=== PATIENT | male | born 2005 | race Two or more races ===

== ENCOUNTER 2025-02-21 16:27 | Emergency (ER) | payer BC ==
[~2025-02-21] VITALS: Ht 177.8 cm; Wt 81.6 kg
[2025-02-21 16:48] VITALS: RESP 18; O2SAT 98
--- NOTE | 2025-02-21 17:13 | ED.PDOC ---
HPI Comments 19 y/o M, presents to the ED for CC of s/p dog bite. Patient states, he was his dog during a dog fight when he was accidently bit on his left hand. Following trauma has a notable, 3cm laceration to his 3rd left digit and a deep puncture wound to his left 2nd digit. At this time bleeding is controlled and patient has good flexion and extension of the left hand. No other symptoms or modifying factors are present at this time. Chief Complaint: Wound Check Time Seen by MD: 17:00 Reviewed Notes: Nurses Notes, Medications, Allergies Allergies: Coded Allergies: NO KNOWN ALLERGIES (Unverified , 02/21/25) Information Source: Patient Mode of Arrival: Ambulatory Severity: Moderate Severity of Laceration: Controlled Bleeding Complexity: Intermediate Timing: Minutes Prehospital treatment: None Laceration Location: Digit #2 (left hand), Digit #3 (left hand) Mechanism: Dog Last Tetanus: Unknown Laceration Length (cm): 3 Depth of Injury: Tendon Tender: Moderate Discharge: Bloody Erythema: Localized to Wound Edges Past Medical History PAST MEDICAL HISTORY: Denies Surgical History: Denies all surgeries Family History Family History: Unknown Social History Smoker: Non-Smoker Alcohol: Denies ETOH Use Drugs: Denies Drug Use Lives In: Home Constitutional: denies: chills, diaphoresis, fatigue, fever, malaise, sweats, weakness, others EENTM: denies: blurred vision, double vision, ear bleeding, ear discharge, ear drainage, ear pain, ear ringing, eye pain, eye redness, hearing loss, mouth pain, mouth swelling, nasal discharge, nose bleeding, nose congestion, nose pain, photophobia, tearing, throat pain, throat swelling, voice changes, others Respiratory: denies: cough, hemoptysis, orthopnea, SOB at rest, shortness of breath, SOB with excertion, stridor, wheezing, others Cardiovascular: denies: chest pain, dizzy spells, diaphoresis, Dyspnea on exertion, edema, irregular heart beat, left arm pain, lightheadedness, palpitations, PND, syncope, others Gastrointestinal: denies: abdomen distended, abdominal pain, blood streaked bowels, constipated, diarrhea, dysphagia, difficulty swallowing, hematemesis, melena, nausea, poor appetite, poor fluid intake, rectal bleeding, rectal pain, vomiting, others Genitourinary: denies: burning, dysuria, flank pain, frequency, hematuria, incontinence, penile discharge, penile sore, pain, testicle pain, testicle swelling, urgency, others Neurological: denies: dizziness, fainting, headache, left sided numbness, left sided weakness, numbness, paresthesia, pre-existing deficit, right sided numbness, right sided weakness, seizure, speech problems, tingling, tremors, weakness, others Musculoskeletal: denies: back pain, gout, joint pain, joint swelling, muscle pain, muscle stiffness, neck pain, others Integumetry: reports: laceration; denies: bruises, change in color, change in hair/nails, dryness, lesions, lumps, rash, wounds, others Allergic/Immunocompromised: denies: Difficulty Healing, Frequent Infections, Hives, Itching, others Hematologic/Lymphatic: denies: anemia, blood clots, easy bleeding, easy bruising, swollen glands, others Endocrine: denies: excessive hunger, excessive sweating, excessive thirst, excessive urination, flushing, intolerance to cold, intolerance to heat, unexplained weight gain, unexplained weight loss, others Psychiatric: denies: anxiety, bipolar disorder, depression, hopeless, panic disorder, schizophrenia, sleepless, suicidal, others All Other Systems: Reviewed and Negative Physical Exam General Appearance: No Apparent Distress, Normal HEENT: Normal ENT Inspection, Pharynx Normal Neck: Full Range of Motion, Non-Tender, Normal, Normal Inspection Respiratory: Chest Non-Tender, Lungs Clear, No Accessory Muscle Use, No Respiratory Distress, Normal Breath Sounds Cardiovascular: No Edema, No Murmur, No Gallop, Normal Peripheral Pulses, Regular Rate/Rhythm Breast Exam: Deferred Gastrointestinal: No Organomegaly, Non Tender, No Pulsatile Mass, Normal Bowel Sounds, Soft Genitalia: Deferred Pelvic: Deferred Rectal: Deferred Extremities: No calf tenderness, Normal capillary refill, Normal inspection, Normal range of motion, Non-tender, No pedal edema Musculoskeletal : Apperance: Normal Neurologic: Alert, 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 Was a procedure done?: No Differential diagnosis Generic Laceration: Tendon Injury, Laceration X-Ray, Labs, Meds, VS Vital Signs Date Time Temp Pulse Resp B/P (MAP) Pulse Ox O2 Delivery O2 Flow Rate FiO2 02/21/25 17:21 98.3 58 16 117/75 (89) 100 98.3 02/21/25 16:48 18 98 Room Air* 0 21 02/21/25 16:32 97.7 60 17 98/39 98 97.7 Current Medications Medications (Trade) Dose Ordered Sig/Osiris Route Start Time Stop Time Status Last Admin Cefazolin Sodium 50 ml @ 100 mls/hr ONCE ONCE IV 02/21/25 17:00 02/21/25 17:29 DC 02/21/25 17:28 [place] [id number] Ph: [phone] DIAGNOSTIC IMAGING Diagnostic Imaging Report : [id number] Signed PATIENT: WAN WHITEHEAD ACCT: [id number] UNIT: [id number] : 2005 LOC: ER ROOM / BED: / AGE / SEX: 19 / M ADM STATUS: REG ER SERVICE 50 ORDERING PHYSICIAN: VENKAT WEBBER PROCEDURE(s): LHAN - L HAND 3V XRAY REASON: dog bite ORDER NUMBER(s): [id number], ACCESSION NUMBER(s): [id number] CLINICAL INDICATION: dog bite TECHNIQUE: 3 radiographic views of the left hand were obtained. Comparison: None FINDINGS/IMPRESSION: Bony structures are normal alignment. There are no radiopaque foreign bodies. There are no acute fractures or dislocations. ATED BY: MANAS PAULSON Jr., DO DICTATED DATE/TIME: 02/21/251730 SIGNED BY: MANAS PAULSON Jr., DO SIGNED DATE/TIME: 02/21/251730 CC: X-Ray, Labs, Meds, VS Comment Spoke with Dr. Quinn, at [facility], hand specialist. He advised that patient can follow up outpatient at his clinic in the next 1-[address] patient on Augmentin and leave the wound open, non closure. Apply Xeroform dressing and bulky dressing. Patient be started on Ancef and be discharged home. Time of 1ST Reevaluation: 17:30 Reevaluation 1ST: Unchanged Patient Education/Counseling: Diagnosis, Treatment, Need For Follow Up (Patient advised to follow up in 24 hours for wound recheck. Clean dressing daily.) Family Education/Counseling: No Family Present Departure 1 Departure Time of Disposition: 18:17 Impression: Primary Impression: Hand laceration Qualified Codes: S61.412A - Laceration without foreign body of left hand, initial encounter Additional Impression: Dog bite Qualified Codes: W54.0XXA - Bitten by dog, initial encounter Disposition: HOME / SELF CARE / HOMELESS Condition: Stable e-Prescriptions Hydrocodone-Acetaminophen (Hydrocodone Bitartrate/AC 5-325 mg) 1 Tab Tab 1 TAB PO TID PRN, #20 TAB Prov: VENKAT WEBBER PLUG STITCHER 02/21/25 Amoxicillin & Pot Clavulanate (AUGMENTIN TABLET) 875 Mg Tb 875 MG PO BID for 10 Days, #20 TAB Prov: VENKAT WEBBER PLUG STITCHER 02/21/25 Discharged With: Self Critical Care Note Critical Care Time?: No Stability Stability form required: No Heart Score Heart Score: Heart Score Response (Comments) Value History N/A 0 EKG N/A 0 Age N/A 0 Risk Factors N/A 0 Troponin N/A 0 Total 0 I personally scribed for VENKAT WEBBER PLUG STITCHER ([email or web address]) on 02/21/25 at 17:13. Electronically submitted by Evelin Cano ([email or web address]). I personally scribed for VENKAT WEBBER PLUG STITCHER ([email or web address]) on 02/21/25 at 17:44. Electronically submitted by Evelin Cano ([email or web address]). VENKAT WEBBER PLUG STITCHER Feb 21, 2025 17:13
[2025-02-21] MEDS: ceFAZolin 1GM/50ML 50 ML IV ONE (17:28)
--- NOTE | 2025-02-21 17:33 | DVH ---
CLINICAL INDICATION: dog bite TECHNIQUE: 3 radiographic views of the left hand were obtained. Comparison: None FINDINGS/IMPRESSION: Bony structures are normal alignment. There are no radiopaque foreign bodies. There are no acute fractures or dislocations.
[2025-02-21] MEDS ORDERED: AUG875T PO (18:18)
[2025-02-21] MEDS ORDERED: HYDR-4902 PO (18:18)
[2025-02-21 18:24] VITALS: BP 115/58; PULSE 54; RESP 16; TEMP 98.2; O2SAT 100
== END 2025-02-21 18:58 | disposition home or self-care (01) ==
LOC: ER 16:27
DX: S61.213A Laceration without foreign body of left middle finger without damage to nail, initial encounter (principal); S61.231A Puncture wound without foreign body of left index finger without damage to nail, initial encounter; W54.0XXA Bitten by dog, initial encounter; Y93.89 Activity, other specified; Y92.89 Other specified places as the place of occurrence of the external cause; Y99.8 Other external cause status
CPT/HCPCS: 73130; 96365; 99284; J0690

== ENCOUNTER 2025-02-22 09:13 | Emergency (ER) | payer SELFPAY ==
[~2025-02-22] VITALS: Ht 177.8 cm; Wt 80.4 kg
[~2025-02-22 09:13] MED LIST: AUG875T PO; HYDR-4902 PO
[2025-02-22 09:15] VITALS: BP 140/91; PULSE 69; RESP 20; TEMP 97.1; O2SAT 100
--- NOTE | 2025-02-22 09:56 | ED.PDOC ---
History of Present Illness HPI Comments A 19 YEAR OLD MALE PRESENTS TO THE ED WITH COMPLAINT OF LEFT HAND LACERATION. PATIENT REPORTS THAT HE WAS HIS DOGS WHILE THEY WERE FIGHTING AND THE DOG BIT HIM ON HIS LEFT HAND LEAVING A 6CM LACERATION TO HIS LEFT DORSAL HAND. PATIENT NOTES HE WAS HERE IN THIS ED FOR THIS COMPLAINT YESTERDAY NIGHT WHERE THE PROVIDER DID NOT PLACE ANY SUTURES AND ONLY WRAPPED IT, BUT NOTES IT CONTINUED TO BLEED, PROMPTING HIM TO COME BACK TO THE ED TODAY FOR EVALUATION. PATIENT DENIES FEVER, CHILLS, SHORTNESS OF BREATH, CHEST PAIN, ABDOMINAL PAIN, NAUSEA, VOMITING, HEADACHE, OR OTHER COMPLAINTS. NO OTHER SYMPTOMS OR MODIFYING FACTORS AT THIS TIME. PATIENT IS ALERT, ORIENTED X 4, AND HAS STEADY GAIT. Chief Complaint: LACERATION OF LEFT HAND Time Seen by MD: 09:50 Reviewed Notes: Nurses Notes, Medications, Allergies Allergies: Coded Allergies: NO KNOWN ALLERGIES (Unverified , 02/21/25) Home Meds Active Scripts Hydrocodone-Acetaminophen (Hydrocodone Bitartrate/AC 5-325 mg) 1 Tab Tab, 1 TAB PO TID PRN, #20 TAB Prov:VENKAT WEBBER 02/21/25 Amoxicillin & Pot Clavulanate (AUGMENTIN TABLET) 875 Mg Tb, 875 MG PO BID for 10 Days, #20 TAB Prov:VENKAT WEBBER 02/21/25 Information Source: Patient Mode of Arrival: Ambulatory Severity: Moderate Timing: Hours Duration: Since onset, Days Prehospital treatment: None Medication Refill: For: Other (LEFT DORSAL HAND LACERATION ) Past Medical History PAST MEDICAL HISTORY: Denies Surgical History: Denies all surgeries Family History Family History: Reviewed,noncontributory to illness, Unknown Social History Smoker: Non-Smoker Alcohol: Denies ETOH Use Drugs: Denies Drug Use Lives In: Home Constitutional: reports: others (laceration of the hand); denies: chills, diaphoresis, fatigue, fever, malaise, sweats, weakness EENTM: denies: blurred vision, double vision, ear bleeding, ear discharge, ear drainage, ear pain, ear ringing, eye pain, eye redness, hearing loss, mouth pain, mouth swelling, nasal discharge, nose bleeding, nose congestion, nose pain, photophobia, tearing, throat pain, throat swelling, voice changes, others Respiratory: denies: cough, hemoptysis, orthopnea, SOB at rest, shortness of breath, SOB with excertion, stridor, wheezing, others Cardiovascular: denies: chest pain, dizzy spells, diaphoresis, Dyspnea on exertion, edema, irregular heart beat, left arm pain, lightheadedness, palpitations, PND, syncope, others Gastrointestinal: denies: abdomen distended, abdominal pain, blood streaked bowels, constipated, diarrhea, dysphagia, difficulty swallowing, hematemesis, melena, nausea, poor appetite, poor fluid intake, rectal bleeding, rectal pain, vomiting, others Genitourinary: denies: burning, dysuria, flank pain, frequency, hematuria, incontinence, penile discharge, penile sore, pain, testicle pain, testicle swelling, urgency, others Neurological: denies: dizziness, fainting, headache, left sided numbness, left sided weakness, numbness, paresthesia, pre-existing deficit, right sided numbness, right sided weakness, seizure, speech problems, tingling, tremors, weakness, others Musculoskeletal: denies: back pain, gout, joint pain, joint swelling, muscle pain, muscle stiffness, neck pain, others Integumetry: reports: laceration (LEFT DORSAL HAND ); denies: bruises, change in color, change in hair/nails, dryness, lesions, lumps, rash, wounds, others Allergic/Immunocompromised: denies: Difficulty Healing, Frequent Infections, Hives, Itching, others Hematologic/Lymphatic: denies: anemia, blood clots, easy bleeding, easy bruising, swollen glands, others Endocrine: denies: excessive hunger, excessive sweating, excessive thirst, excessive urination, flushing, intolerance to cold, intolerance to heat, unexplained weight gain, unexplained weight loss, others Psychiatric: denies: anxiety, bipolar disorder, depression, hopeless, panic disorder, schizophrenia, sleepless, suicidal, others All Other Systems: Reviewed and Negative Physical Exam General Appearance: No Apparent Distress, Normal HEENT: Normal ENT Inspection, PERRL/EOMI, Pharynx Normal, TMs Normal Neck: Full Range of Motion, Non-Tender, Normal, Normal Inspection Respiratory: Chest Non-Tender, Lungs Clear, No Accessory Muscle Use, No Respiratory Distress, Normal Breath Sounds Cardiovascular: No Edema, No JVD, No Murmur, No Gallop, Normal Peripheral Pulses, Regular Rate/Rhythm Breast Exam: Deferred Gastrointestinal: No Organomegaly, Non Tender, No Pulsatile Mass, Normal Bowel Sounds, Soft Genitalia: Deferred Pelvic: Deferred Rectal: Deferred Extremities: No calf tenderness, Normal capillary refill, Normal range of motion, No pedal edema, Tender (WITH LACERATION ON LEFT DORSAL HAND, NO BONY TENDERNESS AND SWELLING. 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 ), Normal Color, Warm Peripheral Pulses: 2+ carotid (R), 2+ carotid (L), 2+ Radial (R), 2+ Radial (L) Lymphatic: No Adenopathy Was a procedure done? Was a procedure done?: Yes Sedation Sedation?: No Laceration Repair : Location LEFT DORSAL HAND Length 6CM Anesthetic: Lidocaine Laceration Repair Prep: Saline, Betadine, by Irrigation Laceration Repair Wound Comple: epidermis/dermis repair Laceration Repair: Number of sutures (10), SQ, Size (4-0), Simple, Gauze Informed consent obtained: No Risks, benefits, and alternati: Yes Images 1 - Differential Dx Considerations may include: LACERATION OF LEFT DORSAL HAND POST DOG BITE X-Ray, Labs, Meds, VS Vital Signs Date Time Temp Pulse Resp B/P (MAP) Pulse Ox O2 Delivery O2 Flow Rate FiO2 02/22/25 09:15 97.1 69 20 140/91 100 97.1 X-Ray, Labs, Meds, VS Comment EXTERNAL MEDICAL RECORDS REVIEWED: [NONE] INDEPENDENT HISTORIANS: [NONE] SOCIAL DETERMINANTS OF HEALTH: [NONE] LABS ORDERED: NONE REVIEWED AND INTERPRETED RESULTS: NONE IMAGING ORDERED: NONE TREATMENTS ORDERED: LACERATION REPAIR OF LEFT HAND PROCEDURES PERFORMED: LACERATION REPAIR, SEE PROCEDURE SECTION. CRITICAL CARE TIME: NONE I HAVE CONSULTED DR. ROMAN REGARDING THIS PATIENT'S CASE AND LACERATION AND HE HAS AGREED THAT THE PATIENT NEEDS TO HAVE SUTURES PLACED TO CLOSE HIS LACERATION. DR. ROMAN HAS AGREED WITH THE PATIENT'S PLAN OF CARE. BASED ON HISTORY OF PRESENT ILLNESS, AND PHYSICAL EXAM, PATIENT WILL BE DISCHARGED HOME. SHARED DECISION MAKING: DISCUSSED WITH PATIENT THAT THEIR WORKUP WAS NORMAL. PATIENT INSTRUCTED TO FOLLOW UP WITH PRIMARY CARE PROVIDER IN 1-2 DAYS FOR RE- EVALUATION OF SYMPTOMS. PATIENT VERBALIZES UNDERSTANDING TO RETURN TO ED FOR NEW OR WORSENING SYMPTOMS OR IF FOLLOW UP WITH PCP CANNOT BE OBTAINED. PATIENT FEELS COMFORTABLE GOING HOME AT THIS TIME. ALL QUESTIONS ADDRESSED AT TIME OF DISCHARGE. Time of 1ST Reevaluation: 10:30 Reevaluation 1ST: Improved Patient Education/Counseling: Diagnosis, Treatment, Need For Follow Up Family Education/Counseling: Diagnosis, Treatment, Need For Follow Up Medical Screening: No EMC Exist At This Time SEPSIS Sepsis Screen Date sepsis recognized/suspect: Feb 22, 2025 Time Sepsis recognized/suspect: 915 Recent Procedure: No On Antibiotic Therapy: No Respiratory Rate >20: No Heart Rate >90: No Temp<36 C (96.8 F) or >38.3 C: No SBP <90 or MAP <65 mmHG: No New Acute Mental Status Change: No Is the patient on CPAP, BIPAP,: No Vital Signs Date Time Temp Pulse Resp B/P (MAP) Pulse Ox O2 Delivery O2 Flow Rate FiO2 02/22/25 09:15 97.1 69 20 140/91 100 97.1 Departure 1 Departure Time of Disposition: 10:40 Impression: Primary Impression: Laceration of left hand Qualified Codes: S61.412D - Laceration without foreign body of left hand, subsequent encounter Disposition: HOME / SELF CARE / HOMELESS Condition: Stable Additional Instructions: FOLLOW-UP WITH PCP IN 1 TO 2 DAYS. TAKE MEDICATIONS PRESCRIBED. RETURN TO ED FOR ANY NEW OR WORSENING SYMPTOMS. Discharged With: Self Critical Care Note Critical Care Time?: No Stability Stability form required: No I personally scribed for TERESA DA SILVA ([email or web address]) on 02/22/25 at 09:56. Electronically submitted by Malcolm Whitaker ([email or web address]). I personally scribed for TERESA DA SILVA ([email or web address]) on 02/22/25 at 10:19. Electronically submitted by Malcolm Whitaker ([email or web address]). TERESA DA SILVA Feb 22, 2025 09:56
== END 2025-02-22 10:21 | disposition home or self-care (01) ==
LOC: ER 09:19
DX: S61.412A Laceration without foreign body of left hand, initial encounter (principal); S61.452A Open bite of left hand, initial encounter; Z79.899 Other long term (current) drug therapy; W54.0XXA Bitten by dog, initial encounter; Y93.89 Activity, other specified; Y92.89 Other specified places as the place of occurrence of the external cause; Y99.8 Other external cause status
CPT/HCPCS: 12002

== ENCOUNTER 2025-02-27 12:33 | Emergency (ER) | payer BC, MEDICAID ==
[~2025-02-27] VITALS: Ht 177.8 cm; Wt 80.2 kg
[2025-02-27 12:36] VITALS: BP 126/70; PULSE 67; RESP 16; TEMP 98.2; O2SAT 99
--- NOTE | 2025-02-27 12:57 | ED.PDOC ---
History of Present Illness(SKN HPI Comments 19-year-old male who presents to the ED with chief complaint of wound check. The patient states that he was bit by Yoli last Thursday. Patient states he came to [facility] and told to see specialist. Patient was given referral to [facility] for hand specialists. Patient came back that night after [place] and had sutures applied and was told to come back one week later for further evaluation. Patient was given 10 day course antibiotics which he states he is still taking. Patient otherwise in the ED has a noted sutures on the left hand, with the area otherwise clean and no noted redness or swelling or exudate. Patient otherwise has stable vitals in the ED. Chief Complaint: Wound Check Time Seen by MD: 12:44 History of Present Illness: Nurses Notes, Medications, Allergies Allergies: Coded Allergies: NO KNOWN ALLERGIES (Unverified , 02/21/25) Home Meds Active Scripts Hydrocodone-Acetaminophen (Hydrocodone Bitartrate/AC 5-325 mg) 1 Tab Tab, 1 TAB PO TID PRN, #20 TAB Prov:VENKAT WEBBER 02/21/25 Amoxicillin & Pot Clavulanate (AUGMENTIN TABLET) 875 Mg Tb, 875 MG PO BID for 10 Days, #20 TAB Prov:VENKAT WEBBER 02/21/25 Information Source: Patient Mode of Arrival: Ambulatory Past Medical History PAST MEDICAL HISTORY: Denies Surgical History: Denies all surgeries Family History Family History: Reviewed,noncontributory to illness, Unknown Social History Smoker: Non-Smoker Alcohol: Denies ETOH Use Drugs: Denies Drug Use Lives In: Home Constitutional: denies: chills, diaphoresis, fatigue, fever, malaise, sweats, weakness, others EENTM: denies: blurred vision, double vision, ear bleeding, ear discharge, ear drainage, ear pain, ear ringing, eye pain, eye redness, hearing loss, mouth pain, mouth swelling, nasal discharge, nose bleeding, nose congestion, nose pain, photophobia, tearing, throat pain, throat swelling, voice changes, others Respiratory: denies: cough, hemoptysis, orthopnea, SOB at rest, shortness of breath, SOB with excertion, stridor, wheezing, others Cardiovascular: denies: chest pain, dizzy spells, diaphoresis, Dyspnea on exertion, edema, irregular heart beat, left arm pain, lightheadedness, palpitations, PND, syncope, others Gastrointestinal: denies: abdomen distended, abdominal pain, blood streaked bowels, constipated, diarrhea, dysphagia, difficulty swallowing, hematemesis, melena, nausea, poor appetite, poor fluid intake, rectal bleeding, rectal pain, vomiting, others Genitourinary: denies: burning, dysuria, flank pain, frequency, hematuria, incontinence, penile discharge, penile sore, pain, testicle pain, testicle swelling, urgency, others Neurological: denies: dizziness, fainting, headache, left sided numbness, left sided weakness, numbness, paresthesia, pre-existing deficit, right sided numbness, right sided weakness, seizure, speech problems, tingling, tremors, weakness, others Musculoskeletal: denies: back pain, gout, joint pain, joint swelling, muscle pain, muscle stiffness, neck pain, others Integumetry: reports: others (Sutures to the left hand noted); denies: bruises, change in color, change in hair/nails, dryness, laceration, lesions, lumps, rash, wounds Allergic/Immunocompromised: denies: Difficulty Healing, Frequent Infections, Hives, Itching, others Hematologic/Lymphatic: denies: anemia, blood clots, easy bleeding, easy bruising, swollen glands, others Endocrine: denies: excessive hunger, excessive sweating, excessive thirst, excessive urination, flushing, intolerance to cold, intolerance to heat, unexplained weight gain, unexplained weight loss, others Psychiatric: denies: anxiety, bipolar disorder, depression, hopeless, panic disorder, schizophrenia, sleepless, suicidal, others All Other Systems: Reviewed and Negative Physical Exam General Appearance: No Apparent Distress, Normal HEENT: Normal ENT Inspection, Pharynx Normal, TMs Normal Neck: Full Range of Motion, Non-Tender, Normal, Normal Inspection Respiratory: Chest Non-Tender, Lungs Clear, No Accessory Muscle Use, No Respiratory Distress, Normal Breath Sounds Cardiovascular: No Edema, No JVD, No Murmur, No Gallop, Normal Peripheral Pulses, Regular Rate/Rhythm Breast Exam: Deferred Gastrointestinal: No Organomegaly, Non Tender, No Pulsatile Mass, Normal Bowel Sounds, Soft Genitalia: Deferred Pelvic: Deferred Rectal: Deferred Extremities: No calf tenderness, Normal capillary refill, Normal inspection, Normal range of motion, Non-tender, No pedal edema Musculoskeletal : Apperance: Normal Neurologic: Alert, environmental monitoring technician II-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 Was a procedure done?: No Differential Diagnosis (INTG) Abscess: Abscess, Bacteremia, Cellulitis X-Ray, Labs, Meds, VS Vital Signs Date Time Temp Pulse Resp B/P (MAP) Pulse Ox O2 Delivery O2 Flow Rate FiO2 02/27/25 12:36 98.2 67 16 126/70 99 98.2 X-Ray, Labs, Meds, VS Comment Patient arrives alert and oriented, ABC's intact, afebrile, vital signs stable, saturating well in room air Stable for dc Additional MDM Review of External, Non-ED records: External records reviewed. Discussion with independent historian (EMS, family) history obtained from the patient/parents (if applicable) at bedside Chronic conditions affecting care: None Social determinants of health affecting care: None Consideration of admission (observation or admission): I considered escalation of care to admission for this patient, however given the reassuring workup, the patient is safe for outpatient management. Discussion with the Radiology: No Tests considered but not performed: Prescription medication considered but not given: Time of 1ST Reevaluation: 13:15 Reevaluation 1ST: Unchanged Patient Education/Counseling: Diagnosis, Treatment Family Education/Counseling: No Family Present SEPSIS Sepsis Screen Date sepsis recognized/suspect: Feb 27, 2025 Time Sepsis recognized/suspect: 1239 Recent Procedure: No On Antibiotic Therapy: No Respiratory Rate >20: No Heart Rate >90: No Temp<36 C (96.8 F) or >38.3 C: No SBP <90 or MAP <65 mmHG: No New Acute Mental Status Change: No Is the patient on CPAP, BIPAP,: No Vital Signs Date Time Temp Pulse Resp B/P (MAP) Pulse Ox O2 Delivery O2 Flow Rate FiO2 02/27/25 12:36 98.2 67 16 126/70 99 98.2 Departure 1 Departure Time of Disposition: 12:57 Impression: Primary Impression: Hand laceration Qualified Codes: S61.412S - Laceration without foreign body of left hand, sequela Disposition: HOME / SELF CARE / HOMELESS Condition: Stable Additional Instructions: Discharge Note: Drink plenty of fluids. Follow up with your primary Dr. If your condition becomes worse call and follow up with your primary DrAndrew for instructions or return to the ER if needed. Thank you for visiting [facility]. Discharged With: Self Critical Care Note Critical Care Time?: No Stability Stability form required: No Heart Score Heart Score: Heart Score Response (Comments) Value History N/A 0 EKG N/A 0 Age N/A 0 Risk Factors N/A 0 Troponin N/A 0 Total 0 I personally scribed for NAYELI ABBOTT NP ([email or web address]) on 02/27/25 at 13:36. Electronically submitted by Jose Pereyra ([email or web address]). NAYELI ABBOTT NP Feb 27, 2025 12:57
== END 2025-02-27 13:04 | disposition home or self-care (01) ==
LOC: ER 12:33
DX: S61.412A Laceration without foreign body of left hand, initial encounter (principal); Z79.899 Other long term (current) drug therapy; X58.XXXA Exposure to other specified factors, initial encounter; Y93.89 Activity, other specified; Y92.89 Other specified places as the place of occurrence of the external cause; Y99.8 Other external cause status

== ENCOUNTER 2025-03-02 11:09 | Inpatient (IN) | payer MEDICAID ==
[~2025-03-02] VITALS: Ht 177.8 cm; Wt 81.5 kg
--- NOTE | 2025-03-02 12:01 | ED.PDOC ---
GI ASSESSMENT HPI Comments A 19 YEAR OLD MALE PRESENTS TO THE ED WITH COMPLAINT OF LOWER ABDOMINAL PAIN WITH NAUSEA AND VOMITING. PATIENT STATES HE HAS BEEN EXPERIENCING LOWER ABDOMINAL PAIN WITH NAUSEA AND VOMITING THAT STARTED YESTERDAY NIGHT. PATIENT NOTES THAT HE WAS PRESCRIBED AUGMENTIN FOR A DOG BITE ON HIS LEFT HAND 5 DAYS AGO, BUT IS NOT SURE IF THIS IS WHAT IS CAUSING HIS SYMPTOMS. PATIENT DENIES DYSURIA, HEMATURIA, FLANK PAIN, FEVER, CHILLS, SHORTNESS OF BREATH, CHEST PAIN, HEADACHE, OR OTHER COMPLAINTS. NO OTHER SYMPTOMS OR MODIFYING FACTORS AT THIS TIME. PATIENT IS ALERT, ORIENTED X 4, AND HAS STEADY GAIT. Chief Complaint: Abdominal Pain Time Seen by MD: 11:28 Reviewed Notes: Nurses Notes, Medications, Allergies Allergies: Coded Allergies: NO KNOWN ALLERGIES (Unverified , 02/21/25) Home Meds Active Scripts Hydrocodone-Acetaminophen (Hydrocodone Bitartrate/AC 5-325 mg) 1 Tab Tab, 1 TAB PO TID PRN, #20 TAB Prov:VENKAT WEBBER 02/21/25 Amoxicillin & Pot Clavulanate (AUGMENTIN TABLET) 875 Mg Tb, 875 MG PO BID for 10 Days, #20 TAB Prov:VENKAT WEBBER 02/21/25 Information Source: Patient Mode of Arrival: Ambulatory Timing: Days Duration: Since onset, Days Prehospital treatment: None Quality: Aching, Cramping, Colicky Vomitus: Food Particles Stool: Normal Severity: Moderate Recent: None Recent Hx of: None Pain Location: RLQ, LLQ Modifying Factors: Nothing Associated sign and symptoms: Nausea, Vomiting, Abdominal Pain Past Medical History PAST MEDICAL HISTORY: Denies Surgical History: Denies all surgeries Family History Family History: Reviewed,noncontributory to illness Social History Smoker: Non-Smoker Alcohol: Denies ETOH Use Drugs: Denies Drug Use Lives In: Home Constitutional: denies: chills, diaphoresis, fatigue, fever, malaise, sweats, weakness, others EENTM: denies: blurred vision, double vision, ear bleeding, ear discharge, ear drainage, ear pain, ear ringing, eye pain, eye redness, hearing loss, mouth pain, mouth swelling, nasal discharge, nose bleeding, nose congestion, nose pain, photophobia, tearing, throat pain, throat swelling, voice changes, others Respiratory: denies: cough, hemoptysis, orthopnea, SOB at rest, shortness of breath, SOB with excertion, stridor, wheezing, others Cardiovascular: denies: chest pain, dizzy spells, diaphoresis, Dyspnea on exe rtion, edema, irregular heart beat, left arm pain, lightheadedness, palpitations, PND, syncope, others Gastrointestinal: reports: abdominal pain, nausea, vomiting; denies: abdomen distended, blood streaked bowels, constipated, diarrhea, dysphagia, difficulty swallowing, hematemesis, melena, poor appetite, poor fluid intake, rectal bleeding, rectal pain, others Genitourinary: denies: burning, dysuria, flank pain, frequency, hematuria, incontinence, penile discharge, penile sore, pain, testicle pain, testicle swelling, urgency, others Neurological: denies: dizziness, fainting, headache, left sided numbness, left sided weakness, numbness, paresthesia, pre-existing deficit, right sided numbness, right sided weakness, seizure, speech problems, tingling, tremors, weakness, others Musculoskeletal: denies: back pain, gout, joint pain, joint swelling, muscle pain, muscle stiffness, neck pain, others Integumetry: denies: bruises, change in color, change in hair/nails, dryness, laceration, lesions, lumps, rash, wounds, others Allergic/Immunocompromised: denies: Difficulty Healing, Frequent Infections, Hives, Itching, others Hematologic/Lymphatic: denies: anemia, blood clots, easy bleeding, easy bruising, swollen glands, others Endocrine: denies: excessive hunger, excessive sweating, excessive thirst, excessive urination, flushing, intolerance to cold, intolerance to heat, unexplained weight gain, unexplained weight loss, others Psychiatric: denies: anxiety, bipolar disorder, depression, hopeless, panic disorder, schizophrenia, sleepless, suicidal, others All Other Systems: Reviewed and Negative Physical Exam General Appearance: No Apparent Distress, Normal HEENT: Normal ENT Inspection, PERRL/EOMI, Pharynx Normal, TMs Normal Neck: Full Range of Motion, Non-Tender, Normal, Normal Inspection Respiratory: Chest Non-Tender, Lungs Clear, No Accessory Muscle Use, No Respiratory Distress, Normal Breath Sounds Cardiovascular: No Edema, No JVD, No Murmur, No Gallop, Normal Peripheral Pulses, Regular Rate/Rhythm Breast Exam: Deferred Gastrointestinal: LLQ, No Organomegaly, No Pulsatile Mass, Normal Bowel Sounds, RLQ, Soft, Tenderness (LOWER ABD WITH MILD GUARDING, NO REBOUND TENDERNESS. 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 Was a procedure done?: No GI differential Dx Differential Diagnosis: Appendicitis, Diverticular disease, Gastritis/PUD, Inflammatory BD, UTI, Dehydration, Food Poisoning, Viral, Kidney Stone X-Ray, Labs, Meds, VS Vital Signs Date Time Temp Pulse Resp B/P (MAP) Pulse Ox O2 Delivery O2 Flow Rate FiO2 03/02/25 11:11 98.3 75 16 112/76 98 98.3 Lab Test 03/02/25 13:17 Range/Units White Blood Count 22.7 H 4.4-10.8 10^3/uL Red Blood Count 5.21 4.5-5.90 10^6/uL Hemoglobin 15.7 13.5-17.5 g/dL Hematocrit 46.1 41.0-53.0 % Mean Corpuscular Volume 88.5 80.0-100.0 fL Mean Corpuscular Hemoglobin 30.1 28.0-32.0 pg Mean Corpuscular Hemoglobin Concent 34.0 32.0-36.0 g/dL Red Cell Distribution Width 13.2 11.8-14.3 % Platelet Count 306 140-450 10^3/uL Mean Platelet Volume 8.4 6.9-10.8 fL Neutrophils (%) (Auto) 37.0-80.0 % Lymphocytes (%) (Auto) 10.0-50.0 % Monocytes (%) (Auto) 0.0-12.0 % Basophils (%) (Auto) 0.0-2.0 % Neutrophils # (Auto) 1.6-8.6 10 ^3/uL Lymphocytes # (Auto) 0.4-5.4 10 ^3/uL Monocytes # (Auto) 0-1.3 10 ^3/uL Differential Total Cells Counted Pending Neutrophils % (Manual) Pending Band Neutrophils % (Manual) Pending Lymphocytes % (Manual) Pending Monocytes % (Manual) Pending Eosinophils % (Manual) Pending Basophils % (Manual) Pending Metamyelocytes % (manual) Pending Myelocytes % (Manual) Pending Promyelocytes % (Manual) Pending Blast Cells % (Manual) Pending Reactive Lymphocytes Pending Platelet Estimate Pending Prothrombin Time 11.3 9.3-11.8 sec Prothrombin Time INR 1.07 0.9-1.15 Sodium Level 140 136-145 mmol/L Potassium Level 4.1 3.5-5.1 mmol/L Chloride Level 100 98-107 mmol/L Carbon Dioxide Level 28 20-31 mmol/L Anion Gap 12 5-15 Blood Urea Nitrogen 12 9-23 mg/dL Creatinine 0.94 0.700-1.30 mg/dL Glomerular Filtration Rate Calc 120 >90 mL/min BUN/Creatinine Ratio 12.8 10.0-20.0 Serum Glucose 123 H 74-106 mg/dL Calcium Level 9.9 8.7-10.4 mg/dL Current Medications Medications (Trade) Dose Ordered Sig/Osiris Route Start Time Stop Time Status Last Admin Piperacillin Sod/ Tazobactam Sod 100 ml @ 100 mls/hr ONCE ONCE IV 03/02/25 12:45 03/02/25 13:44 DC 03/02/25 13:16 Ondansetron HCl (Zofran) 4 mg ONCE ONCE IV 03/02/25 12:45 03/02/25 12:48 DC 03/02/25 13:16 Ketorolac Tromethamine (Toradol Injection) 30 mg ONCE ONCE IV 03/02/25 12:45 03/02/25 12:48 DC 03/02/25 13:16 EXAM: CT CT AB PEL WO CON-NO ORAL OR IV INDICATION: lower abd pain with n/v TECHNIQUE: Volumetric multidetector CT images of the abdomen and pelvis were obtained without contrast. All CT scans at this facility use dose modulation, iterative reconstruction, and/or weight based dosing when appropriate to reduce radiation dose to as low as reasonably achievable. COMPARISON: None FINDINGS: [LOWER CHEST]: The partially visualized lung bases are clear without a pleural effusion. The cardiac size is normal without pericardial effusion. [LIVER]: Normal hepatic size without suspicious focal lesion. [GALLBLADDER AND BILIARY TREE]: No cholelithiasis. [SPLEEN]: Unremarkable. [PANCREAS]: Unremarkable. [ADRENAL GLANDS]: Unremarkable [KIDNEYS]: No hydronephrosis. No nephroureterolithiasis. [BLADDER]: Unremarkable for the degree distention. [REPRODUCTIVE ORGANS]: Unremarkable. [BOWEL/MESENTERY]: Stomach is normal. No CT evidence of bowel obstruction. mild stool burden inflammatory stranding with dilation of the appendix measuring up to 10 mm with small appendicolith measuring 7 mm. Imaging finding compatible with acute appendicitis. No drainable fluid collection. [ASCITES]: Small volume ascites [LYMPHADENOPATHY]: No pathologically enlarged lymph nodes by CT size criteria [VASCULATURE]: No aneurysmal dilatation. [ABDOMINAL WALL]: Unremarkable. [MUSCULOSKELETAL]: No acute fracture or aggressive focal osseous lesion. IMPRESSION: 1. Acute appendicitis with small volume ascites. ATED BY: SYLVESTER NICKERSON MD DICTATED DATE/TIME: 03/02/25 1239 SIGNED BY: SYLVESTER NICKERSON MD SIGNED DATE/TIME: 03/02/25 1239 CC: X-Ray, Labs, Meds, VS Comment EXTERNAL MEDICAL RECORDS REVIEWED: [NONE] INDEPENDENT HISTORIANS: [NONE] SOCIAL DETERMINANTS OF HEALTH: [NONE] LABS ORDERED: CBC, BMP, UA, PT INR REVIEWED AND INTERPRETED RESULTS: WBC 22.7 IMAGING ORDERED: CT ABD/PEL TREATMENTS ORDERED: NS 1 L IV, ZOFRAN 4 MG IV, TORADOL 30 MG IV, ZOSYN 3.375 G IV PROCEDURES PERFORMED: NONE CRITICAL CARE TIME: NONE I HAVE DISCUSSED THE PATIENT WITH THE ATTENDING PHYSICIAN DR. VITALE AND HE AGREES WITH THE PATIENT'S PLAN OF CARE. UPON MY PHYSICAL EXAMINATION, THE PATIENT HAD GUARDING, BUT NO REBOUND TENDERNESS NOTED UPON PALPATION TO HIS RIGHT LOWER QUADRANT, AND WAS OBTURATOR SIGN POSITIVE. A CT SCAN OF THE PATIENT'S ABDOMEN AND PELVIS WAS DONE WHICH REVEALED ACUTE APPENDICITIS WITH AN APPENDICOLITH. DUE TO THE PATIENT'S CT SCAN RESULTS, I HAVE DETERMINED THE PATIENT NEEDS TO BE ADMITTED FOR FURTHER APRIL TMENT. THE ON-CALL HOSPITALIST AND GENERAL SURGEON WILL BE CONTACTED FOR ADMISSION OF THIS PATIENT AND SURGICAL CONSULT. 1350: I HAVE CONSULTED THE ON-CALL GENERAL SURGEON, DR. CULP REGARDING THIS PATIENT'S CT SCAN RESULTS IN CASE AND HE HAS A IT HE WILL CONSULT ON THIS PATIENT'S CASE AND WILL COME TO EXAMINED THE PATIENT HIMSELF SHORTLY. Images Reviewed?: Images reviewed and evaluated by me Time of 1ST Reevaluation: 14:00 Reevaluation 1ST: Unchanged Patient Education/Counseling: Diagnosis, Treatment Family Education/Counseling: Diagnosis, Treatment SEPSIS Sepsis Screen Date sepsis recognized/suspect: Mar 02, 2025 Time Sepsis recognized/suspect: 1114 Recent Procedure: No On Antibiotic Therapy: No Respiratory Rate >20: No Heart Rate >90: No Temp<36 C (96.8 F) or >38.3 C: No SBP <90 or MAP <65 mmHG: No New Acute Mental Status Change: No Is the patient on CPAP, BIPAP,: No Physician Orders Ct Ab Pel Wo Con-No Oral Or Iv (03/02/25 11:57) Complete Blood Count (03/02/25 12:44) Urinalysis (03/02/25 12:44) Heplock Iv (03/02/25 ) Manual Differential (03/02/25 13:17) * Surgical Consult (03/02/25 ) Chest Xray 1 View (03/02/25 14:20) Vital Signs Date Time Temp Pulse Resp B/P (MAP) Pulse Ox O2 Delivery O2 Flow Rate FiO2 03/02/25 11:11 98.3 75 16 112/76 98 98.3 Laboratory Tests Test 03/02/25 13:17 White Blood Count 22.7 10^3/uL (4.4-10.8) H Medications Medications Dose Ordered Sig/Osiris Route Start Time Stop Time Status Last Admin Dose Admin Ketorolac Tromethamine 30 mg ONCE ONCE IV 03/02/25 12:45 03/02/25 12:48 DC 03/02/25 13:16 Ondansetron HCl 4 mg ONCE ONCE IV 03/02/25 12:45 03/02/25 12:48 DC 03/02/25 13:16 Piperacillin Sod/ Tazobactam Sod 100 ml @ 100 mls/hr ONCE ONCE IV 03/02/25 12:45 03/02/25 13:44 DC 03/02/25 13:16 Departure 1 Departure Time of Disposition: 14:00 Impression: Primary Impression: Acute appendicitis Qualified Codes: K35.80 - Unspecified acute appendicitis Disposition: ADMITTED INPATIENT Condition: Serious Critical Care Note Critical Care Time?: No Stability Stability form required: Yes Unstable for transfer: Requires medication, ED Physician Assesment, Possible rapid decline I personally scribed for TERESA DA SILVA ([email or web address]) on 03/02/25 at 12:01. Electronically submitted by Armani Choudhary ([email or web address]). I personally scribed for TERESA DA SILVA ([email or web address]) on 03/02/25 at 13:53. Electronically submitted by Armani Choudhary (SALMA). TERESA DA SILVA Mar 02, 2025 12:01
--- NOTE | 2025-03-02 12:41 | DVH ---
EXAM: CT CT AB PEL WO CON-NO ORAL OR IV INDICATION: lower abd pain with n/v TECHNIQUE: Volumetric multidetector CT images of the abdomen and pelvis were obtained without contras t. All CT scans at this facility use dose modulation, iterative reconstruction, and/or weight based d osing when appropriate to reduce radiation dose to as low as reasonably achievable. COMPARISON: None FINDINGS: [LOWER CHEST]: The partially visualized lung bases are clear without a pleural effusion. The cardiac size is normal without pericardial effusion. [LIVER]: Normal hepatic size without suspicious focal lesion. [GALLBLADDER AND BILIARY TREE]: No cholelithiasis. [SPLEEN]: Unremarkable. [PANCREAS]: Unremarkable. [ADRENAL GLANDS]: Unremarkable [KIDNEYS]: No hydronephrosis. No nephroureterolithiasis. [BLADDER]: Unremarkable for the degree distention. [REPRODUCTIVE ORGANS]: Unremarkable. [BOWEL/MESENTERY]: Stomach is normal. No CT evidence of bowel obstruction. mild stool burden inflamma tory stranding with dilation of the appendix measuring up to 10 mm with small appendicolith measuring 7 mm. Imaging finding compatible with acute appendicitis. No drainable fluid collection. [ASCITES]: Small volume ascites [LYMPHADENOPATHY]: No pathologically enlarged lymph nodes by CT size criteria [VASCULATURE]: No aneurysmal dilatation. [ABDOMINAL WALL]: Unremarkable. [MUSCULOSKELETAL]: No acute fracture or aggressive focal osseous lesion. IMPRESSION: 1. Acute appendicitis with small volume ascites.
[2025-03-02] MEDS: KETOROLAC TROMETH 30 MG/ML 1ML VIAL IV ONE (13:16)
[2025-03-02] MEDS: ONDANSETRON HCL 4 MG/2 ML VIAL IV ONE (13:16)
[2025-03-02] MEDS: PIPERACILLIN-TAZOB 3.375GM 100 ML IV ONE (13:16)
[2025-03-02 13:37] LABS: Hematocrit 46.1 % (41.0-53.0); Hemoglobin 15.7 g/dL (13.5-17.5); Mean Corpuscular Hemoglobin 30.1 pg (28.0-32.0); Mean Corpuscular Volume 88.5 fL (80.0-100.0)
[2025-03-02 13:43] LABS: Chloride 100 mmol/L (98-107); Potassium 4.1 mmol/L (3.5-5.1); Sodium 140 mmol/L (136-145)
[2025-03-02 13:44] LABS: Anion Gap 12 (5-15); Calcium 9.9 mg/dL (8.7-10.4); Carbon Dioxide 28 mmol/L (20-31)
[2025-03-02 13:49] LABS: BUN/Creatinine Ratio 12.8 (10.0-20.0); Blood Urea Nitrogen 12 mg/dL (9-23)
[2025-03-02 13:54] LABS: Glucose 123 mg/dL (74-106)
[2025-03-02 13:59] LABS: INR 1.07 (0.9-1.15); Prothrombin Time 11.3 sec (9.3-11.8)
[2025-03-02] MEDS ORDERED: MORPHINE SULFATE INJ 2 MG/ml SYRG IV PRN ×2 (14:30→16:30)
[2025-03-02] MEDS ORDERED: SODIUM CHLORIDE 0.9% 1,000 ML IV ONE (14:30)
[2025-03-02] MEDS ORDERED: ONDANSETRON HCL 4 MG/2 ML VIAL IV PRN (14:30)
[2025-03-02] MEDS ORDERED: MORPHINE SULFATE 4 MG/ML SYR/VIAL IV PRN ×2 (15:15→16:30)
[2025-03-02 15:19] LABS: Total Cells Counted 100.0 (100)
--- NOTE | 2025-03-02 15:45 | DVHINCON2 ---
Consultation - Surgical Date Seen: Mar 02, 2025 Referring Physician Reason for Consultation Acute appendicitis History of Present Illness History of Present Illness Mr. De La Cruz is a 19-year-old male who presented with right lower quadrant abdominal pain that started during the a.m. hours. Patient states he has been taking some antibiotics for a wound in his left hand, took the antibiotics last night and then starting to feel bloated with minimal abdominal pain. Attributed this feeling to the antibiotics he has been taking. But then in the a.m. hours he woke up very bloated when nausea vomiting and severe wire lower quadrant abdominal pain that brought him to the ED. Past Medical/Surgical History Past Medical/Surgical History PMH seizures (resolved) PSH denies Allergies and medications Allergies: Coded Allergies: NO KNOWN ALLERGIES (Unverified , 02/21/25) Home Meds Active Scripts Hydrocodone-Acetaminophen (Hydrocodone Bitartrate/AC 5-325 mg) 1 Tab Tab, 1 TAB PO TID PRN, #20 TAB Prov:VENKAT WEBBER 02/21/25 Amoxicillin & Pot Clavulanate (AUGMENTIN TABLET) 875 Mg Tb, 875 MG PO BID for 10 Days, #20 TAB Prov:VENKAT WEBBERP 02/21/25 Review of systems Review of Systems: Deferred Examination Vital signs Vital Signs Date Time Temp Pulse Resp B/P (MAP) Pulse Ox O2 Delivery O2 Flow Rate FiO2 03/02/25 11:11 98.3 75 16 112/76 98 98.3 Medications Current Medications Medications (Trade) Dose Ordered Sig/Osiris Route PRN Reason Start Time Stop Time Status Last Admin Piperacillin Sod/ Tazobactam Sod 100 ml @ 25 mls/hr Q6HR IV 03/02/25 18:00 Pantoprazole Sodium (Protonix) 40 mg DAILY IV 03/03/25 10:00 Ondansetron HCl (Zofran) 4 mg Q4HP PRN IV NAUSEA / VOMITING 03/02/25 14:30 Morphine Sulfate 2 mg Q4HPRN PRN IV SEVERE PAIN (7-10 PAIN SCALE) 03/02/25 14:30 UNV Morphine Sulfate 2 mg Q4HPRN PRN IV SEVERE PAIN (7-10 PAIN SCALE) 03/02/25 15:15 Laboratory Labs Test 03/02/25 13:17 Range/Units White Blood Count 22.7 H 4.4-10.8 10^3/uL Red Blood Count 5.21 4.5-5.90 10^6/uL Hemoglobin 15.7 13.5-17.5 g/dL Hematocrit 46.1 41.0-53.0 % Mean Corpuscular Volume 88.5 80.0-100.0 fL Mean Corpuscular Hemoglobin 30.1 28.0-32.0 pg Mean Corpuscular Hemoglobin Concent 34.0 32.0-36.0 g/dL Red Cell Distribution Width 13.2 11.8-14.3 % Platelet Count 306 140-450 10^3/uL Mean Platelet Volume 8.4 6.9-10.8 fL Neutrophils (%) (Auto) 37.0-80.0 % Lymphocytes (%) (Auto) 10.0-50.0 % Monocytes (%) (Auto) 0.0-12.0 % Basophils (%) (Auto) 0.0-2.0 % Neutrophils # (Auto) 1.6-8.6 10 ^3/uL Lymphocytes # (Auto) 0.4-5.4 10 ^3/uL Monocytes # (Auto) 0-1.3 10 ^3/uL Differential Total Cells Counted 100.0 100 Neutrophils % (Manual) 95 H 37.0-80.0 Band Neutrophils % (Manual) 0 Lymphocytes % (Manual) 2 L 10.0-50.0 Monocytes % (Manual) 3 0-12 Eosinophils % (Manual) 0 0-7 Basophils % (Manual) 0 0.0-2.0 Metamyelocytes % (manual) 0 Myelocytes % (Manual) 0 Promyelocytes % (Manual) 0 Blast Cells % (Manual) 0 Reactive Lymphocytes 0 Platelet Estimate Adequate Prothrombin Time 11.3 9.3-11.8 sec Prothrombin Time INR 1.07 0.9-1.15 Sodium Level 140 136-145 mmol/L Potassium Level 4.1 3.5-5.1 mmol/L Chloride Level 100 98-107 mmol/L Carbon Dioxide Level 28 20-31 mmol/L Anion Gap 12 5-15 Blood Urea Nitrogen 12 9-23 mg/dL Creatinine 0.94 0.700-1.30 mg/dL Glomerular Filtration Rate Calc 120 >90 mL/min BUN/Creatinine Ratio 12.8 10.0-20.0 Serum Glucose 123 H 74-106 mg/dL Calcium Level 9.9 8.7-10.4 mg/dL Examination: GENERAL:Normal, ABDOMEN:Abnormal (Flat, no scars, no hernias, soft, depressible, right lower quadrant tenderness, no rebound, no guarding) Problem List/Assessment/Plan Problems: (1) Acute appendicitis Assessment and Plan Mr. De La Cruz is a 19-year-old male who presented with acute appendicitis. CT reviewed and shows dilated appendix with stranding surrounding it. Patient also presented with a leukocytosis of 23. Patient will benefit from laparoscopic appendectomy. Procedure, risks, benefits, complications, and alternatives discussed with the patient. Patient agrees with surgical plan. 1. On-call to OR for laparoscopic appendectomy possible open 2. Continue with IV antibiotics 3. NPO 4. Pain and nausea control Plan discussed with Plan discussed with: Patient Visit Coding Surgery Date of Service if different f: Mar 02, 2025 Billing Provider: ANGELICA JOSEPH MD Surgery Visit Codes: 15183 - INP CONSULT <110 MIN ANGELICA JOSEPH MD Mar 02, 2025 15:45
[2025-03-02 16:00] VITALS: PULSE 67; RESP 18; O2SAT 98
[2025-03-02] MEDS: PANTOPRAZOLE 40 MG/10 ML VIAL INJ IV ONE (16:03)
[2025-03-02] MEDS ORDERED: KETOROLAC TROMETH 30 MG/ML 1ML VIAL IV ONE (16:30)
[2025-03-02] MEDS ORDERED: HYDROmorphone HCL 2 MG/ML VL/or syr IV PRN ×2 (16:30)
--- NOTE | 2025-03-02 17:26 | DVHHP2 ---
History of Present Illness Reason for Visit: Abdominal pain History of Present Illness 19-year-old male presents for evaluation of abdominal pain. Patient reports a one day history of lower abdominal pain with associated nausea and vomiting. Denies fever or chills. Patient reports being prescribed Augmentin for a left hand dog bite five days ago. Denies cardiac or respiratory complaints. Past Medical History Denies Past Surgical History Denies Family History Noncontributory Smoke: No ALCOHOL: none Drugs: None Lives: with Family Review of Systems Review of Systems Review of systems are currently negative otherwise addressed in HPI. Allergies: Coded Allergies: NO KNOWN ALLERGIES (Unverified , 02/21/25) Medications Current Medications Medications Dose Ordered Sig/Osiris Route Start Time Stop Time Status Last Admin Dose Admin Piperacillin Sod/ Tazobactam Sod 100 ml @ 25 mls/hr Q6HR IV 03/02/25 18:00 Pantoprazole Sodium 40 mg DAILY IV 03/03/25 10:00 Ondansetron HCl 4 mg Q4HP PRN IV 03/02/25 14:30 Morphine Sulfate 2 mg Q4HPRN PRN IV 03/02/25 14:30 UNV Morphine Sulfate 2 mg Q4HPRN PRN IV 03/02/25 15:15 Morphine Sulfate 2 mg Q4H PRN IV 03/02/25 16:30 03/02/25 20:31 Morphine Sulfate 1 mg Q30M PRN IV 03/02/25 16:30 03/02/25 18:31 Exam Vital Signs Vital Signs Date Time Temp Pulse Resp B/P (MAP) Pulse Ox O2 Delivery O2 Flow Rate FiO2 03/02/25 17:18 98.5 67 18 122/72 (89) 99 98.5 03/02/25 16:00 Room Air* 0 21 Exam Gen: 19-year-old male in mild distress Skin: Warm, dry, normal color and texture, no rash. HEENT: Normocephalic atraumatic, mucous membranes moist and pink. Neck: Cervical and supraclavicular nodes normal without enlargement, trachea is midline, thyroid gland is normal without masses. Pulmonary: Clear to auscultation and percussion bilaterally. Cardiac: Regular rate and rhythm. No murmur Abdomen: Soft, lower abdominal tenderness, nondistended, bowel sounds present all 4 quadrants, no guarding, no rigidity, no organomegaly. Extremities: No cyanosis, clubbing, no edema Neuro: Cranial nerves II through XII grossly intact, normal affect and speech, no focal motor deficits. Labs/Xrays ORDERING PHYSICIAN: TERESA DA SILVA PROCEDURE(s): ABPL - CT AB PEL WO CON-NO ORAL OR IV REASON: lower abd pain with n/v ORDER NUMBER(s): [id number], ACCESSION NUMBER(s): [id number] EXAM: CT CT AB PEL WO CON-NO ORAL OR IV INDICATION: lower abd pain with n/v TECHNIQUE: Volumetric multidetector CT images of the abdomen and pelvis were obtained without contrast. All CT scans at this facility use dose modulation, iterative reconstruction, and/or weight based dosing when appropriate to reduce radiation dose to as low as reasonably achievable. COMPARISON: None FINDINGS: [LOWER CHEST]: The partially visualized lung bases are clear without a pleural effusion. The cardiac size is normal without pericardial effusion. [LIVER]: Normal hepatic size without suspicious focal lesion. [GALLBLADDER AND BILIARY TREE]: No cholelithiasis. [SPLEEN]: Unremarkable. [PANCREAS]: Unremarkable. [ADRENAL GLANDS]: Unremarkable [KIDNEYS]: No hydronephrosis. No nephroureterolithiasis. [BLADDER]: Unremarkable for the degree distention. [REPRODUCTIVE ORGANS]: Unremarkable. [BOWEL/MESENTERY]: Stomach is normal. No CT evidence of bowel obstruction. mild stool burden inflammatory stranding with dilation of the appendix measuring up to 10 mm with small appendicolith measuring 7 mm. Imaging finding compatible with acute appendicitis. No drainable fluid collection. [ASCITES]: Small volume ascites [LYMPHADENOPATHY]: No pathologically enlarged lymph nodes by CT size criteria [VASCULATURE]: No aneurysmal dilatation. [ABDOMINAL WALL]: Unremarkable. [MUSCULOSKELETAL]: No acute fracture or aggressive focal osseous lesion. IMPRESSION: 1. Acute appendicitis with small volume ascites. Labs Test 03/02/25 13:17 Range/Units White Blood Count 22.7 H 4.4-10.8 10^3/uL Red Blood Count 5.21 4.5-5.90 10^6/uL Hemoglobin 15.7 13.5-17.5 g/dL Hematocrit 46.1 41.0-53.0 % Mean Corpuscular Volume 88.5 80.0-100.0 fL Mean Corpuscular Hemoglobin 30.1 28.0-32.0 pg Mean Corpuscular Hemoglobin Concent 34.0 32.0-36.0 g/dL Red Cell Distribution Width 13.2 11.8-14.3 % Platelet Count 306 140-450 10^3/uL Mean Platelet Volume 8.4 6.9-10.8 fL Neutrophils (%) (Auto) 37.0-80.0 % Lymphocytes (%) (Auto) 10.0-50.0 % Monocytes (%) (Auto) 0.0-12.0 % Basophils (%) (Auto) 0.0-2.0 % Neutrophils # (Auto) 1.6-8.6 10 ^3/uL Lymphocytes # (Auto) 0.4-5.4 10 ^3/uL Monocytes # (Auto) 0-1.3 10 ^3/uL Differential Total Cells Counted 100.0 100 Neutrophils % (Manual) 95 H 37.0-80.0 Band Neutrophils % (Manual) 0 Lymphocytes % (Manual) 2 L 10.0-50.0 Monocytes % (Manual) 3 0-12 Eosinophils % (Manual) 0 0-7 Basophils % (Manual) 0 0.0-2.0 Metamyelocytes % (manual) 0 Myelocytes % (Manual) 0 Promyelocytes % (Manual) 0 Blast Cells % (Manual) 0 Reactive Lymphocytes 0 Platelet Estimate Adequate Prothrombin Time 11.3 9.3-11.8 sec Prothrombin Time INR 1.07 0.9-1.15 Sodium Level 140 136-145 mmol/L Potassium Level 4.1 3.5-5.1 mmol/L Chloride Level 100 98-107 mmol/L Carbon Dioxide Level 28 20-31 mmol/L Anion Gap 12 5-15 Blood Urea Nitrogen 12 9-23 mg/dL Creatinine 0.94 0.700-1.30 mg/dL Glomerular Filtration Rate Calc 120 >90 mL/min BUN/Creatinine Ratio 12.8 10.0-20.0 Serum Glucose 123 H 74-106 mg/dL Calcium Level 9.9 8.7-10.4 mg/dL SEPSIS Sepsis Screen Date sepsis recognized/suspect: Mar 02, 2025 Time Sepsis recognized/suspect: 1114 Recent Procedure: No On Antibiotic Therapy: No Respiratory Rate >20: No Heart Rate >90: No Temp<36 C (96.8 F) or >38.3 C: No SBP <90 or MAP <65 mmHG: No New Acute Mental Status Change: No Is the patient on CPAP, BIPAP,: No Physician Orders Ct Ab Pel Wo Con-No Oral Or Iv (03/02/25 11:57) Urinalysis (03/02/25 12:44) Heplock Iv (03/02/25 ) * Surgical Consult (03/02/25 ) Chest Xray 1 View (03/02/25 14:20) Sodium Chloride 0.9% (03/02/25 14:30) Piperacillin-Tazob 3.375gm (Zosyn 3.375g (03/02/25 18:00) Pantoprazole (Protonix) (03/03/25 10:00) Basic Metabolic Panel (03/03/25 04:00) Admit (03/02/25 14:20) Ondansetron Hcl (Zofran) (03/02/25 14:30) Complete Blood Count (03/03/25 04:00) Npo (Nothing By Mouth) Diet (03/02/25 Dinner) Condition: Stable (03/02/25 14:20) Bedrest With Bathroom Privileg (03/02/25 14:20) Morphine Sulfate Injection (03/02/25 15:15) Obtain Consent For: (03/02/25 15:45) Obtain Consent For Anesthesia (03/02/25 15:45) Oxygen By Face Mask (03/02/25 16:30) Talent Recruiter (03/02/25 16:30) Notify Anesth. For Changes: (03/02/25 16:30) Pulse Ox Assessment (03/02/25 16:30) Bear Hugger For Temp <94.5f (03/02/25 16:30) May Have Head Of Bed Up (03/02/25 16:30) Follow Iv With Surgeon Orders (03/02/25 16:30) Discharge To Room Per Criteria (03/02/25 16:30) Morphine Sulfate Injection (03/02/25 16:30) Morphine Sulfate Injection (03/02/25 16:30) Vital Signs Date Time Temp Pulse Resp B/P (MAP) Pulse Ox O2 Delivery O2 Flow Rate FiO2 03/02/25 17:18 98.5 67 18 122/72 (89) 99 98.5 03/02/25 16:00 67 18 98 Room Air* 0 21 03/02/25 15:58 98.8 67 18 127/80 (96) 96 98.8 03/02/25 11:11 98.3 75 16 112/76 98 98.3 Laboratory Tests Test 03/02/25 13:17 White Blood Count 22.7 10^3/uL (4.4-10.8) H Medications Medications Dose Ordered Sig/Osiris Route Start Time Stop Time Status Last Admin Dose Admin Ketorolac Tromethamine 30 mg ONCE ONCE IV 03/02/25 12:45 03/02/25 12:48 DC 03/02/25 13:16 30 MG Ondansetron HCl 4 mg ONCE ONCE IV 03/02/25 12:45 03/02/25 12:48 DC 03/02/25 13:16 4 MG Pantoprazole Sodium 40 mg ONCE ONCE IV 03/02/25 14:30 03/02/25 15:06 DC 03/02/25 16:03 40 MG Piperacillin Sod/ Tazobactam Sod 100 ml @ 100 mls/hr ONCE ONCE IV 03/02/25 12:45 03/02/25 13:44 DC 03/02/25 13:16 100 MLS/HR Assessment/Plan Assessment/Plan Assessment Acute abdominal pain Acute appendicitis Leukocytosis Plan Admit the patient to [facility] to the hospitalist Surgical consultation NPO Maintenance IV fluids Pain management Continue treatment per orders. Plan discussed with: Patient My Orders Orders - ANGEL YEAGER AGACNP Procedure Category Date Status Time Chest Xray 1 View XY 03/02/25 Taken 14:20 Sodium Chloride 0.9% PHA 03/02/25 In Process 14:30 Piperacillin-Tazob PHA 03/02/25 In Process 3.375gm (Zosyn 3.375g 18:00 Pantoprazole PHA 03/03/25 In Process (Protonix) 10:00 Basic Metabolic Panel LAB 03/03/25 Verified 04:00 Admit ADMIT 03/02/25 Transmitted 14:20 Ondansetron Hcl PHA 03/02/25 In Process (Zofran) 14:30 Complete Blood Count LAB 03/03/25 Verified 04:00 Npo (Nothing By DIET 03/02/25 Transmitted Mouth) Diet Dinner Condition: Stable BRITNEY 03/02/25 In Process 14:20 Bedrest With Bathroom BRITNEY 03/02/25 In Process Privileg 14:20 Morphine Sulfate PHA 03/02/25 In Process Injection 15:15 Date of Service: Mar 02, 2025 Billing Provider: ANGEL YEAGER Common Visit Codes: [id number] INP/OBS CARE (HIGH) ANGEL YEAGER Mar 02, 2025 17:26
[2025-03-02] MEDS: PIPERACILLIN-TAZOB 3.375GM 100 ML IV SCH (18:00)
--- NOTE | 2025-03-02 18:27 | DVH ---
CHEST RADIOGRAPH Indication: preop Technique: Single frontal view of the chest was obtained Comparison: None FINDINGS: Lines and Tubes: None Lungs: No focal consolidation. Pleura: No effusion. No pneumothorax. Cardiomediastinal contours: Unremarkable Bones: No acute osseous abnormality. IMPRESSION: 1. No acute cardiopulmonary disease.
[2025-03-02] MEDS ORDERED: fentaNYL CITRATE 100 MCG/2 ML VL ONE (18:38)
[2025-03-02] MEDS ORDERED: SODIUM CHLORIDE LOCK 10 ML ONE (18:38)
[2025-03-02] MEDS ORDERED: PROPOFOL 10 MG/ML 20 ML IV ONE (18:38)
[2025-03-02] MEDS ORDERED: ONDANSETRON HCL 4 MG/2 ML VIAL ONE (18:38)
[2025-03-02] MEDS ORDERED: MIDAZOLAM HCL 2MG/2ML 2ml VIAL (1mg/ml) ONE (18:38)
[2025-03-02] MEDS ORDERED: ROCURONIUM 10MG/ML 10ML VIAL IV ONE (18:38)
[2025-03-02] MEDS ORDERED: LIDOCAINE HCL 2% TOP JELLY 5ML TOP ONE (18:38)
[2025-03-02] MEDS ORDERED: HYDROmorphone HCL 2 MG/ML VL/or syr ONE (18:38)
[2025-03-02] MEDS ORDERED: LIDOCAINE 1% INJ PF 5ML AMP ONE (18:38)
[2025-03-02] MEDS ORDERED: BUPIVACAINE HCL 0.25% P/F 10 ML VIAL ONE (18:47)
[2025-03-02] MEDS ORDERED: ceFAZolin 1GM/50ML 100 ML IV ONE (19:16)
[2025-03-02] MEDS ORDERED: NEOSTIGMINE 1 MG/ML INJ (10mg/10ML VIAL) ONE (20:16)
[2025-03-02] MEDS ORDERED: GLYCOPYRROLATE 0.2 MG/ML 1ML VIAL ONE (20:16)
[2025-03-02 20:32] VITALS: PULSE 86; RESP 13; O2SAT 100
--- NOTE | 2025-03-02 20:43 | DVHOP2 ---
Operative Report - 2 Report Details Date: 03/02/25 Preop Diagnosis: Acute appendicitis Postop Diagnosis: Same Surgeon: Tarik Choudhary MD Anesthesiologist: Dr. Snyder Anesthesia: General Consent: The patient was informed of the risks and benefits of the procedure. These include but are not limited to complications of anesthesia, postoperative infection, incomplete relief of symptoms, recurrence of symptoms, damage to blood vessels, nerves and tendons, deep venous thrombosis, pulmonary embolism and possible need for repeat surgery in the future. Estimated Blood Loss: 5 mL Findings: Acutely inflamed appendix, severe dilation from mid appendix to tip, thin scarring to retroperitoneum and lateral abdominal wall. Not gangrenous, not perforated Indications for Surgery: Acute appendicitis Name of Procedure Performed Laparoscopic appendectomy Procedure Details Procedure Details: Upon arrival to the operating room the patient was transferred to the operating table and placed in the supine position with arms tucked. General endotracheal anesthesia was induced. Time-out was observed. Patient was prepped and draped in the standard sterile surgical fashion with chlorhexidine. I then proceeded to make a infraumbilical curvilinear incision and carried it down to fascia. I then grasped the umbilical stalk with Clay clamp and walked it down to its base. Once at the base of the umbilicus I gained entry into the peritoneal cavity utilizing Dion technique. I then placed a fascial retention stitch of 0 Vicryl in [id number] fashion. I then placed the 12 mm trocar and insufflated the cavity to 15 mmHg with toleration. I then placed a 30 degree 10 mm camera, and surveyed the entry site, no injuries. I then placed 2 additional 5 mm ports under direct vision, at the suprapubic area and at the left lower quadrant area. Patient was then placed in the Trendelenburg position with right side up. I then proceeded to identify the cecum and leaf of Treves. I then noted of the appendix was adhered to the lateral abdominal wall and to the retroperitoneum, with thin adhesions. I bluntly lyse these adhesions and gained appendix mobility. The appendix was inflamed and thickened, particularly from the midpoint to the tip. The appendix was not gangrenous or perforated. I then grasped the leaf of Treves with grasper and identified the appendix base. I then grasped near the appendix base, and then utilized the [place] to create a mesenteric rent right at the base of the appendix. I then utilized this mesenteric rent to place the Endo-MARJORIE 60 mm white load through it. Appendix was then transected. I then transected the mesoappendix with another 60 mm Endo-MARJORIE white load. Appendix was then placed in the Endo-Catch bag and removed from the peritoneal cavity through the umbilical incision. I then suctioned the right lower quadrant area and inspected both of the staple lines. Both staple lines were intact and hemostatic. I then proceeded to suctioned some inflammatory f luid from the pelvis. Patient incision was then leveled. I took a 2nd look at the staple lines, they were intact and no bleeding. This concluded the intraperitoneal portion of the operation. All counts complete and correct. I then removed the 2 5 mm ports under direct vision. The peritoneal cavity was allowed to desufflate. I then closed the fascial retention stitch that was previously placed. All skin sites were closed with 4-0 Monocryl and Dermabond. 0.25% Marcaine was used as local anesthetic. Patient tolerated the procedure well and was transferred to PACU in stable condition. Specimen: Appendix Condition Stable Disposition Still a Patient TARIK JOSEPH MD Mar 02, 2025 20:43
[2025-03-02] MEDS ORDERED: HYDROcodone-ACET 5/325MG TAB PO PRN (20:45)
[2025-03-02] MEDS ORDERED: HYDROcodone-ACET 10/325MG TAB PO PRN (20:45)
[2025-03-02 20:51] VITALS: PULSE 76; RESP 21; O2SAT 97
[2025-03-02 21:00] VITALS: BP 132/78; PULSE 75; RESP 17; TEMP 97.7; O2SAT 99
[2025-03-02] MEDS: IBUPROFEN 600 MG TAB PO SCH (23:24)
[2025-03-02] MEDS: ACETAMINOPHEN 325 MG TAB PO SCH (23:24)
[2025-03-03 01:00] VITALS: BP 109/43; PULSE 80; RESP 17; TEMP 98; O2SAT 96
[2025-03-03 05:00] VITALS: BP 128/75; PULSE 78; RESP 17; TEMP 97.5; O2SAT 99
[2025-03-03 06:45] LABS: Hematocrit 40.6 % (41.0-53.0); Hemoglobin 13.9 g/dL (13.5-17.5); Mean Corpuscular Hemoglobin 30.3 pg (28.0-32.0); Mean Corpuscular Volume 88.3 fL (80.0-100.0); Nucleated Red Blood Cells % 0.0 %
[2025-03-03 07:12] LABS: Chloride 103 mmol/L (98-107); Potassium 4.2 mmol/L (3.5-5.1); Sodium 141 mmol/L (136-145)
[2025-03-03 07:13] LABS: Anion Gap 12 (5-15); Calcium 9.4 mg/dL (8.7-10.4); Carbon Dioxide 26 mmol/L (20-31)
[2025-03-03 07:18] LABS: BUN/Creatinine Ratio 10.8 (10.0-20.0)
[2025-03-03 07:21] LABS: Blood Urea Nitrogen 9 mg/dL (9-23); Glucose 132 mg/dL (74-106)
[2025-03-03 08:00] VITALS: PULSE 91; RESP 20; O2SAT 97
[2025-03-03] MEDS: PANTOPRAZOLE 40 MG/10 ML VIAL INJ IV SCH (08:51)
[2025-03-03 09:00] VITALS: BP 130/82; PULSE 91; RESP 20; TEMP 98; O2SAT 97
[2025-03-03 13:00] VITALS: BP 137/84; PULSE 90; RESP 20; TEMP 98.8; O2SAT 96
--- NOTE | 2025-03-03 15:09 | DVHPN2 ---
Progress Note - Surgical Date Seen: Mar 03, 2025 Post op day Post op day: 1 Subjective Patient reports: Feels better (Patient feels good today, minimal postsurgical pain) Review of Systems: Deferred Objective Vital signs Vital Sign Date Time Temp Pulse Resp B/P (MAP) Pulse Ox O2 Delivery O2 Flow Rate FiO2 03/03/25 13:00 98.8 90 20 137/84 (101) 96 98.8 03/03/25 08:00 Room Air* 0 21 Total Intake and Output 03/02/25 03/02/25 03/03/25 15:00 23:00 07:00 Intake Total 300 ml Balance 300 ml Medications Current Medications Medications Dose Ordered Sig/Osiris Route Start Time Stop Time Status Last Admin Dose Admin Piperacillin Sod/ Tazobactam Sod 100 ml @ 25 mls/hr Q6HR IV 03/02/25 18:00 03/03/25 11:45 25 MLS/HR Pantoprazole Sodium 40 mg DAILY IV 03/03/25 10:00 03/03/25 08:51 40 MG Ondansetron HCl 4 mg Q4HP PRN IV 03/02/25 14:30 Morphine Sulfate 2 mg Q4HPRN PRN IV 03/02/25 14:30 UNV Morphine Sulfate 2 mg Q4HPRN PRN IV 03/02/25 15:15 Acetaminophen/ Hydrocodone Bitart 1 tab Q4HPRN PRN PO 03/02/25 20:45 Acetaminophen/ Hydrocodone Bitart 1 tab Q4HP PRN PO 03/02/25 20:45 Acetaminophen 650 mg Q6HR PO 03/03/25 00:00 03/03/25 11:45 650 MG Ibuprofen 600 mg TID PO 03/02/25 22:00 03/03/25 05:26 600 MG Laboratory Laboratory Tests 03/03/25 06:00 Test 03/03/25 06:00 Range/Units Serum Glucose 132 H 74-106 mg/dL Examination: GENERAL:Normal, ABDOMEN:Normal (Flat, soft, depressible, umbilical incision with some surrounding ecchymosis, all incision sites with skin glue in place, no surrounding signs of infection over any of the skin incision sites. Appropriate postsurgical tenderness, no rebound, no guarding) Labs and/or images reviewed: Labs reviewed by me (Leukocytosis down trending 14.8 from 22.7) Problem List/Assessment/Plan Problems: (1) Acute appendicitis Assessment and Plan Mr. De La Cruz is a 19-year-old male who presented yesterday with acute appendicitis, he is currently postop day 1 from laparoscopic appendectomy. He is doing very well today, tolerating diet, ambulating, pain well controlled. Patient should be able to go home today per surgical standpoint. 1. Okay to discharge per surgical standpoint 2. Regular diet 3. For baseline pain control utilize Tylenol and/or ibuprofen, see plant operations coordinator's directions. 4. Goehner 5-325 mg p.o. every 6 hours p.r.n. severe pain 5. MiraLax 1 packet daily PRN constipation 6. No lifting over 10 lb for 6-8 weeks 7. May shower today, less soap and water run over incision sites 8. No bathing or swimming for 2 weeks 9. Follow-up with Dr. Dyson at surgery [facility] in 2 weeks. Please call for appointment My Orders My Orders Orders - ANGELICA JOSEPH MD Procedure Category Date Status Time Obtain Consent For: ORDERS 03/02/25 Transmitted 15:45 Obtain Consent For BRITNEY 03/02/25 In Process Anesthesia 15:45 Regular Diet DIET 03/03/25 Transmitted Breakfast Hydrocodone-Acet PHA 03/02/25 In Process 5/325mg Tab (Goehner 20:45 Hydrocodone-Acet PHA 03/02/25 In Process 10/325mg Tab (Goehner 20:45 Acetaminophen Tablet PHA 03/03/25 In Process (Tylenol Tablet) 00:00 Ibuprofen Tablet PHA 03/02/25 In Process (Motrin Tablet) 22:00 Plan discussed with Plan discussed with: Patient, Other (Father) Visit Coding Surgery Date of Service if different f: Mar 03, 2025 Billing Provider: ANGELICA JOSEPH MD Surgery Visit Codes: [id number] INP/OBS CARE(HIGH) ANGELICA JOSEPH MD Mar 03, 2025 15:09
[2025-03-03] MEDS ORDERED: HYDR-4902 PO (16:17)
[2025-03-03] MEDS ORDERED: ACET-1079 PO (16:17)
[2025-03-03] MEDS ORDERED: IBUP1TAB4 PO (16:17)
--- NOTE | 2025-03-03 16:19 | DVHDS2 ---
Discharge Summary Date of Admission Mar 02, 2025 at 14:20 Date of Discharge: Mar 03, 2025 Labs/Diagnostic Data: Laboratory Results Test 03/03/25 06:00 03/02/25 13:17 White Blood Count 14.8 10^3/uL (4.4-10.8) Red Blood Count 4.60 10^6/uL (4.5-5.90) Hemoglobin 13.9 g/dL (13.5-17.5) Hematocrit 40.6 % (41.0-53.0) Mean Corpuscular Volume 88.3 fL (80.0-100.0) Mean Corpuscular Hemoglobin 30.3 pg (28.0-32.0) Mean Corpuscular Hemoglobin Concent 34.3 g/dL (32.0-36.0) Red Cell Distribution Width 13.2 % (11.8-14.3) Platelet Count 263 10^3/uL (140-450) Mean Platelet Volume 8.0 fL (6.9-10.8) Neutrophils (%) (Auto) 92.7 % (37.0-80.0) Lymphocytes (%) (Auto) 4.2 % (10.0-50.0) Monocytes (%) (Auto) 3.0 % (0.0-12.0) Eosinophils (%) (Auto) 0.0 % (0.0-7.0) Basophils (%) (Auto) 0.1 % (0.0-2.0) Neutrophils # (Auto) 13.8 10 ^3/uL (1.6-8.6) Lymphocytes # (Auto) 0.6 10 ^3/uL (0.4-5.4) Monocytes # (Auto) 0.4 10 ^3/uL (0-1.3) Eosinophils # (Auto) 0 10 ^3/uL (0-0.8) Basophils # (Auto) 0 10 ^3/uL (0-0.2) Nucleated Red Blood Cells 0.0 % Sodium Level 141 mmol/L (136-145) Potassium Level 4.2 mmol/L (3.5-5.1) Chloride Level 103 mmol/L (98-107) Carbon Dioxide Level 26 mmol/L (20-31) Anion Gap 12 (5-15) Blood Urea Nitrogen 9 mg/dL (9-23) Creatinine 0.83 mg/dL (0.700-1.30) Glomerular Filtration Rate Calc 129 mL/min (>90) BUN/Creatinine Ratio 10.8 (10.0-20.0) Serum Glucose 132 mg/dL (74-106) Calcium Level 9.4 mg/dL (8.7-10.4) Differential Total Cells Counted 100.0 (100) Neutrophils % (Manual) 95 (37.0-80.0) Band Neutrophils % (Manual) 0 Lymphocytes % (Manual) 2 (10.0-50.0) Monocytes % (Manual) 3 (0-12) Eosinophils % (Manual) 0 (0-7) Basophils % (Manual) 0 (0.0-2.0) Metamyelocytes % (manual) 0 Myelocytes % (Manual) 0 Promyelocytes % (Manual) 0 Blast Cells % (Manual) 0 Reactive Lymphocytes 0 Platelet Estimate Adequate Prothrombin Time 11.3 sec (9.3-11.8) Prothrombin Time INR 1.07 (0.9-1.15) Other Laboratory Tests 03/03/25 06:00 Brief Hx & Hospital Course: 19 M with prior dog bite admitted for abd pain with N/v. found leukocytosis, abdominal tenderness and ct showed acute appendicitis. s/p laparoscopic appendectomy. recvceived abx pre op. dc with pain management. cleared by surgery. stable to dc. Condition at Discharge: Stable Final Diagnosis/Problems List acute appendicitis Discharge Disposition: Home Discharge Instruct/Medications Diet: Consistent carbohydrate, Cardiac 2g Na,low cholest Activity: No Restrictions, As Tolerated Scheduled Amoxicillin & Pot Clavulanate (Augmentin Tablet), 875 MG PO BID Scheduled PRN Acetaminophen (Tylenol), 650 MG PO Q8HP PRN Hydrocodone-Acetaminophen (Hydrocodone Bitartrate/AC 5-325 mg), 1 TAB PO TID PRN Hydrocodone-Acetaminophen (Hydrocodone Bitartrate/AC 5-325 mg), 1 TAB PO Q6HP PRN Ibuprofen Micronized (Ibuprofen), 400 MG PO TIDP PRN Discharge Statement: "Patient was advised to return to the ER or call 911 if any headaches, dizziness, shortness of breath, chest pain, abdominal pain, bleeding, fevers, or worsening of medical condition. Patient was counseled about treatment plan, medications, possible side effects, patientverbalized understanding. All questions were answered to the best of my ability. This discharge took greater then 30 minutes in planning, reviewing documentation, counseling the patient, and discussing with other team members." ASSESSMENT ASSESSMENT Assessment acute appendicitis Date of Service: Mar 03, 2025 Billing Provider: LASHAUN VIVAS MD Common Visit Codes: [id number] DISCH DAY >30min LASHAUN VIVAS MD Mar 03, 2025 16:19
[2025-03-03 17:04] VITALS: BP 109/53; PULSE 60; RESP 18; TEMP 97.6; O2SAT 97
== END 2025-03-03 17:49 | disposition home or self-care (01) | DRG 234 ==
LOC: ER 11:09 → OVERFLOW 14:20 → WEST WING 21:23
PROVIDERS: ADMIT Student in an Organized Health Care Education/Training Program; ATTEND Student in an Organized Health Care Education/Training Program
PROC: 0DTJ4ZZ Resection of Appendix, Percutaneous Endoscopic Approach (ICD-10-PCS; principal; 2025-03-02 19:12)
DX: K35.80 Unspecified acute appendicitis (principal); R71.0 Precipitous drop in hematocrit; D72.829 Elevated white blood cell count, unspecified; K66.0 Peritoneal adhesions (postprocedural) (postinfection)
CPT/HCPCS: 36415; 71045; 74176; 80048; 85007; 85025; 85027; 85610; 86850; 86900; 86901; G0378; J1100; J1885; J2250; J2405; J2470; J2543; J2704; J3490

== ENCOUNTER 2025-03-08 11:54 | Emergency (ER) | payer MEDICAID ==
[~2025-03-08] VITALS: Ht 177.8 cm; Wt 76.0 kg
[~2025-03-08 11:54] MED LIST changes: +ACET-1079 PO; +IBUP1TAB4 PO
[2025-03-08 12:31] VITALS: BP 136/72; PULSE 60; RESP 15; TEMP 98; O2SAT 98
--- NOTE | 2025-03-08 12:31 | ED.PDOC ---
History of Present Illness HPI Comments THIS IS A 19 YEAR OLD MALE PRESENTING TO THE ED WITH CHIEF COMPLAINT OF SUTURE REMOVAL. PATIENT REPORTS THAT HE HAD SUTURES PLACED IN HIS LEFT HAND 14 DAYS AGO, COMING BACK TODAY FOR REMOVAL. PATIENT DENIES FEVER, CHILLS, SHORTNESS OF BREATH, CHEST PAIN, ABDOMINAL PAIN, NAUSEA, VOMITING, HEADACHE, OR OTHER C OMPLAINTS. NO OTHER SYMPTOMS OR MODIFYING FACTORS AT THIS TIME. PATIENT IS ALERT, ORIENTED X 4, AND HAS STEADY GAIT. Chief Complaint: Wound Check Time Seen by MD: 12:30 Reviewed Notes: Nurses Notes, Medications, Allergies Allergies: Coded Allergies: NO KNOWN ALLERGIES (Unverified , 02/21/25) Home Meds Active Scripts Hydrocodone-Acetaminophen (Hydrocodone Bitartrate/AC 5-325 mg) 1 Tab Tab, 1 TAB PO Q6HP PRN for 5 Days, #20 TAB Prov:LASHAUN VIVAS MD 03/03/25 Acetaminophen (Tylenol) 325 Mg Tb, 650 MG PO Q8HP PRN for 10 Days, #60 TAB Prov:LASHAUN VIVAS MD 03/03/25 Ibuprofen Micronized (Ibuprofen) 400 Mg Tab, 400 MG PO TIDP PRN for 5 Days, #15 TAB Prov:LASHAUN VIVAS MD 03/03/25 Hydrocodone-Acetaminophen (Hydrocodone Bitartrate/AC 5-325 mg) 1 Tab Tab, 1 TAB PO TID PRN, #20 TAB Prov:VENKAT WEBBER 02/21/25 Amoxicillin & Pot Clavulanate (AUGMENTIN TABLET) 875 Mg Tb, 875 MG PO BID for 10 Days, #20 TAB Prov:VENKAT WEBBER 02/21/25 Information Source: Patient Mode of Arrival: Ambulatory Severity: None Timing: Days Duration: Since onset Prehospital treatment: None Medication Refill: For: Other (SUTURE REMOVAL OF LEFT HAND ) Past Medical History PAST MEDICAL HISTORY: Denies Surgical History: Denies all surgeries Family History Family History: Reviewed,noncontributory to illness Social History Smoker: Non-Smoker Alcohol: Denies ETOH Use Drugs: Denies Drug Use Lives In: Home Constitutional: denies: chills, diaphoresis, fatigue, fever, malaise, sweats, weakness, others EENTM: denies: blurred vision, double vision, ear bleeding, ear discharge, ear drainage, ear pain, ear ringing, eye pain, eye redness, hearing loss, mouth pain, mouth swelling, nasal discharge, nose bleeding, nose congestion, nose pain, photophobia, tearing, throat pain, throat swelling, voice changes, others Respiratory: denies: cough, hemoptysis, orthopnea, SOB at rest, shortness of breath, SOB with excertion, stridor, wheezing, others Cardiovascular: denies: chest pain, dizzy spells, diaphoresis, Dyspnea on exertion, edema, irregular heart beat, left arm pain, lightheadedness, palpitations, PND, syncope, others Gastrointestinal: denies: abdomen distended, abdominal pain, blood streaked bowels, constipated, diarrhea, dysphagia, difficulty swallowing, hematemesis, melena, nausea, poor appetite, poor fluid intake, rectal bleeding, rectal pain, vomiting, others Genitourinary: denies: burning, dysuria, flank pain, frequency, hematuria, incontinence, penile discharge, penile sore, pain, testicle pain, testicle swelling, urgency, others Neurological: denies: dizziness, fainting, headache, left sided numbness, left sided weakness, numbness, paresthesia, pre-existing deficit, right sided numbness, right sided weakness, seizure, speech problems, tingling, tremors, weakness, others Musculoskeletal: denies: back pain, gout, joint pain, joint swelling, muscle pain, muscle stiffness, neck pain, others Integumetry: reports: laceration (LEFT DORSAL HAND RE[PAIRED. ); denies: bruises, change in color, change in hair/nails, dryness, lesions, lumps, rash, wounds, others Allergic/Immunocompromised: denies: Difficulty Healing, Frequent Infections, Hives, Itching, others Hematologic/Lymphatic: denies: anemia, blood clots, easy bleeding, easy bruising, swollen glands, others Endocrine: denies: excessive hunger, excessive sweating, excessive thirst, excessive urination, flushing, intolerance to cold, intolerance to heat, unexplained weight gain, unexplained weight loss, others Psychiatric: denies: anxiety, bipolar disorder, depression, hopeless, panic disorder, schizophrenia, sleepless, suicidal, others All Other Systems: Reviewed and Negative Physical Exam General Appearance: No Apparent Distress, Normal HEENT: Normal ENT Inspection, PERRL/EOMI, Pharynx Normal, TMs Normal Neck: Full Range of Motion, Non-Tender, Normal, Normal Inspection Respiratory: Chest Non-Tender, Lungs Clear, No Accessory Muscle Use, No Respiratory Distress, Normal Breath Sounds Cardiovascular: No Edema, No JVD, No Murmur, No Gallop, Normal Peripheral Pulses, Regular Rate/Rhythm Breast Exam: Deferred Gastrointestinal: No Organomegaly, Non Tender, No Pulsatile Mass, Normal Bowel Sounds, Soft Genitalia: Deferred Pelvic: Deferred Rectal: Deferred Extremities: No calf tenderness, Normal capillary refill, Normal inspection, Normal range of motion, Non-tender, No pedal edema Musculoskeletal : Apperance: Normal Neurologic: Alert, data support specialist II-XII nml as Tested, No Motor Deficits, Normal Affect, Normal Mood, No Sensory Deficits Cerebellar Function: Normal Reflexes: Normal Skin: Dry, Lacerations (LEFT DORSAL HAND REPAIRED, HEALED LACERATION, NO INFECTION SIGNS. ), Normal Color, Warm Peripheral Pulses: 2+ carotid (R), 2+ carotid (L), 2+ Radial (R), 2+ Radial (L) Lymphatic: No Adenopathy Was a procedure done? Was a procedure done?: No Differential Dx Considerations may include: SUTURE REMOVAL OF LEFT HAND X-Ray, Labs, Meds, VS Vital Signs Date Time Temp Pulse Resp B/P (MAP) Pulse Ox O2 Delivery O2 Flow Rate FiO2 03/08/25 12:31 98.0 60 15 136/72 (93) 98 98.0 03/08/25 12:31 60 15 98 Room Air 03/08/25 11:56 98.0 60 15 136/72 98 98.0 X-Ray, Labs, Meds, VS Comment EXTERNAL MEDICAL RECORDS REVIEWED: [NONE] INDEPENDENT HISTORIANS: [NONE] SOCIAL DETERMINANTS OF HEALTH: [NONE] LABS ORDERED: NONE REVIEWED AND INTERPRETED RESULTS: NONE IMAGING ORDERED: NONE TREATMENTS ORDERED: 10 SUTURES REMOVED FROM LEFT HAND. PROCEDURES PERFORMED: NONE CRITICAL CARE TIME: NONE I HAVE DISCUSSED THE PATIENT WITH THE ATTENDING PHYSICIAN, DR. SMITH, HE AGREES WITH THE PATIENT'S PLAN OF CARE AND DISPOSITION. BASED ON HISTORY OF PRESENT ILLNESS, AND PHYSICAL EXAM, PATIENT WILL BE DISCHARGED HOME. DISCUSSED PLAN FOR DISCHARGE HOME. SHARED DECISION MAKING: DISCUSSED WITH PATIENT THAT THEIR WORKUP WAS NORMAL. PATIENT INSTRUCTED TO FOLLOW UP WITH PRIMARY CARE PROVIDER IN 1-2 DAYS FOR RE- EVALUATION OF SYMPTOMS. PATIENT VERBALIZES UNDERSTANDING TO RETURN TO ED FOR NEW OR WORSENING SYMPTOMS OR IF FOLLOW UP WITH PCP CANNOT BE OBTAINED. PATIENT FEELS COMFORTABLE GOING HOME AT THIS TIME. ALL QUESTIONS ADDRESSED AT TIME OF DISCHARGE. Time of 1ST Reevaluation: 12:38 Reevaluation 1ST: Improved Patient Education/Counseling: Diagnosis, Treatment, Need For Follow Up Family Education/Counseling: Diagnosis, Treatment, No Family Present Medical Screening: No EMC Exist At This Time SEPSIS Sepsis Screen Date sepsis recognized/suspect: Mar 08, 2025 Time Sepsis recognized/suspect: 1158 Recent Procedure: No On Antibiotic Therapy: No Respiratory Rate >20: No Heart Rate >90: No Temp<36 C (96.8 F) or >38.3 C: No SBP <90 or MAP <65 mmHG: No New Acute Mental Status Change: No Is the patient on CPAP, BIPAP,: No Vital Signs Date Time Temp Pulse Resp B/P (MAP) Pulse Ox O2 Delivery O2 Flow Rate FiO2 03/08/25 12:31 98.0 60 15 136/72 (93) 98 98.0 03/08/25 12:31 60 15 98 Room Air 03/08/25 11:56 98.0 60 15 136/72 98 98.0 Departure 1 Departure Time of Disposition: 12:38 Impression: Primary Impression: Encounter for removal of sutures Disposition: 01 HOME / SELF CARE / HOMELESS Condition: Stable Additional Instructions: FOLLOW-UP WITH PCP IN 1 TO 2 DAYS. TAKE MEDICATIONS PRESCRIBED. RETURN TO ED FOR ANY NEW OR WORSENING SYMPTOMS. Discharged With: Self Critical Care Note Critical Care Time?: No Stability Stability form required: No Heart Score Heart Score: Heart Score Response (Comments) Value History N/A 0 EKG N/A 0 Age N/A 0 Risk Factors N/A 0 Troponin N/A 0 Total 0 I personally scribed for TERESA DA SILVA ([email or web address]) on 03/08/25 at 12:31. Electronically submitted by Huang Shoemaker ([email or web address]). TERESA DA SILVA Mar 08, 2025 12:31
== END 2025-03-08 12:35 | disposition home or self-care (01) ==
LOC: ER 11:54
DX: S61.412D Laceration without foreign body of left hand, subsequent encounter (principal); X58.XXXD Exposure to other specified factors, subsequent encounter; Z48.02 Encounter for removal of sutures